=== PATIENT | female | born 1955 | race Native Hawaiian/Other Pacific Islander ===

== ENCOUNTER 2017-04-26 08:04 | Outpatient (CLI) | payer OTHER ==
[2017-04-26 09:02] LABS: PLATELET COUNT 256 K/uL (152-353)
[2017-04-26 09:10] LABS: POTASSIUM 3.9 mmol/L (3.6-5.2); SODIUM 140 mmol/L (136-145)
== END 2017-04-26 19:14 | disposition home or self-care (01) ==
LOC: LABW 08:04
PROVIDERS: Family Medicine
DX: M25.50 Pain in unspecified joint (principal)
CPT/HCPCS: 36415; 80053; 84550; 85027; 85651; 86039; 86140; 86430

== ENCOUNTER 2018-02-08 09:13 | Observation (INO) | payer OTHER ==
[~2018-02-08] VITALS: Ht 149.9 cm; Wt 42.7 kg
[2018-02-08 09:37] LABS: POTASSIUM 4.4 mmol/L (3.6-5.2)
[2018-02-08 14:16] VITALS: BP 140/51; TEMP 98.9; Ht 149.9 cm; Wt 42.7 kg
[2018-02-08] MEDS ORDERED: DILT30TA24 PO (14:30)
[2018-02-08] MEDS ORDERED: CELEXA10 MG PO (14:31)
[2018-02-08] MEDS ORDERED: PEPCID40 MG OR (14:31)
[2018-02-08] MEDS ORDERED: ASPIR-8181 MG PO (14:32)
[2018-02-08] MEDS ORDERED: VITAMIN D-31000 UNI1 PO (14:32)
[2018-02-08 15:23] LABS: PLATELET COUNT 302 K/uL (152-353)
[2018-02-08 15:56] LABS: POTASSIUM 4.3 mmol/L (3.6-5.2)
[2018-02-08 16:00] VITALS: BP 141/76; TEMP 98.6
[2018-02-08 20:00] VITALS: BP 148/65; TEMP 98.5
[2018-02-09] VITALS: BP 151/70; TEMP 98
[2018-02-09 04:00] VITALS: BP 149/74; TEMP 98.2
[2018-02-09 05:03] LABS: PLATELET COUNT 250 K/uL (152-353)
[2018-02-09 05:29] LABS: POTASSIUM 3.9 mmol/L (3.6-5.2)
[2018-02-09 07:58] VITALS: BP 133/61; TEMP 98.4
[2018-02-09 12:00] VITALS: BP 112/55; TEMP 98.3
== END 2018-02-09 16:00 | disposition home or self-care (01) ==
LOC: LABW 09:13 → MED/SURG 13:14
PROVIDERS: Nurse Practitioner Family; ADMIT Family Medicine
DX: K80.80 Other cholelithiasis without obstruction (principal); R74.8 Abnormal levels of other serum enzymes; F41.8 Other specified anxiety disorders; R13.19 Other dysphagia; R63.4 Abnormal weight loss; K21.9 Gastro-esophageal reflux disease without esophagitis
CPT/HCPCS: 36415; 80053; 80074; 81000; 82248; 82550; 82553; 83735; 83874; 84100; 84443; 84484; 85027; 87040; 93005; 99220; G0378; J3490

== ENCOUNTER 2018-02-11 17:37 | Outpatient (CLI) | payer OTHER ==
[~2018-02-11 17:37] MED LIST: ASPIR-8181 MG PO; CELEXA10 MG PO; DILT30TA24 PO; PEPCID40 MG OR; VITAMIN D-31000 UNI1 PO
[2018-02-11 17:57] LABS: PLATELET COUNT 271 K/uL (152-353)
[2018-02-11 18:44] LABS: POTASSIUM 4.4 mmol/L (3.6-5.2)
== END 2018-02-11 22:33 | disposition home or self-care (01) ==
LOC: LAB 17:37
PROVIDERS: Family Medicine
DX: M62.82 Rhabdomyolysis (principal); R94.5 Abnormal results of liver function studies
CPT/HCPCS: 36415; 80053; 82550; 85027

== ENCOUNTER 2018-02-14 10:28 | Day surgery (SDC) | payer OTHER ==
[~2018-02-14] VITALS: Ht 30.5 cm; Wt 0.5 kg
== END 2018-02-14 14:00 | disposition home or self-care (01) ==
LOC: OR 10:28
PROC: 0DB58ZZ Excision of Esophagus, Via Natural or Artificial Opening Endoscopic (ICD-10-PCS; principal; 2018-02-14)
PROC: 0D758ZZ Dilation of Esophagus, Via Natural or Artificial Opening Endoscopic (ICD-10-PCS; 2018-02-14)
DX: K29.50 Unspecified chronic gastritis without bleeding (principal); K22.2 Esophageal obstruction; R13.10 Dysphagia, unspecified; R63.4 Abnormal weight loss; R10.84 Generalized abdominal pain
CPT/HCPCS: 93005; J2001; J2250; J2704

== ENCOUNTER 2018-03-05 10:21 | Outpatient (CLI) | payer OTHER ==
[2018-03-05 11:13] LABS: PLATELET COUNT 277 K/uL (152-353)
[2018-03-05 11:37] LABS: POTASSIUM 4.1 mmol/L (3.6-5.2)
== END 2018-03-05 19:48 | disposition home or self-care (01) ==
LOC: LABW 10:21
PROVIDERS: Family Medicine
DX: R63.4 Abnormal weight loss (principal); R13.19 Other dysphagia; M62.82 Rhabdomyolysis; E04.1 Nontoxic single thyroid nodule
CPT/HCPCS: 36415; 80053; 81000; 82550; 82553; 84443; 84484; 84550; 85027; 85651; 86039; 86430

== ENCOUNTER 2018-03-15 13:45 | Outpatient (CLI) | payer OTHER | END 2018-03-15 19:48 | disposition home or self-care (01) | LOC: INF 13:45 | DX: E86.0 Dehydration (principal) | CPT/HCPCS: 96360; 96361 ==

== ENCOUNTER 2018-04-09 13:11 | Outpatient (CLI) | payer OTHER ==
[2018-04-09 13:44] LABS: PLATELET COUNT 275 K/uL (152-353)
[2018-04-09 14:00] LABS: POTASSIUM 4.4 mmol/L (3.6-5.2)
== END 2018-04-09 23:16 | disposition home or self-care (01) ==
LOC: LABW 13:11
PROVIDERS: Internal Medicine Rheumatology
DX: M33.20 Polymyositis, organ involvement unspecified (principal)
CPT/HCPCS: 36415; 80053; 82550; 85027; 86140

== ENCOUNTER 2018-04-30 09:33 | Outpatient (CLI) | payer OTHER ==
[2018-04-30 10:21] LABS: PLATELET COUNT 281 K/uL (152-353)
[2018-04-30 10:33] LABS: POTASSIUM 4.1 mmol/L (3.6-5.2)
== END 2018-04-30 19:28 | disposition home or self-care (01) ==
LOC: LABW 09:33
PROVIDERS: Internal Medicine Rheumatology
DX: M33.20 Polymyositis, organ involvement unspecified (principal)
CPT/HCPCS: 36415; 80053; 82550; 85027; 86140

== ENCOUNTER 2018-05-31 09:43 | Outpatient (CLI) | payer OTHER | END 2018-05-31 22:46 | disposition home or self-care (01) | LOC: MAMMO 09:43 | DX: Z12.31 Encounter for screening mammogram for malignant neoplasm of breast (principal) ==

== ENCOUNTER 2018-06-03 09:44 | Outpatient (CLI) | payer OTHER ==
[2018-06-03 10:00] LABS: PLATELET COUNT 313 K/uL (152-353)
[2018-06-03 10:28] LABS: POTASSIUM 4.4 mmol/L (3.6-5.2)
== END 2018-06-03 20:39 | disposition home or self-care (01) ==
LOC: LABW 09:44
PROVIDERS: Internal Medicine Rheumatology
DX: M33.20 Polymyositis, organ involvement unspecified (principal); Z79.899 Other long term (current) drug therapy
CPT/HCPCS: 36415; 80048; 82550; 85027; 86140

== ENCOUNTER 2018-06-24 10:00 | Outpatient (CLI) | payer OTHER | END 2018-06-24 19:44 | disposition home or self-care (01) | LOC: RAD 10:00 | DX: N95.1 Menopausal and female climacteric states (principal); Z78.0 Asymptomatic menopausal state ==

== ENCOUNTER 2018-07-04 09:53 | Outpatient (CLI) | payer OTHER ==
[2018-07-04 10:23] LABS: PLATELET COUNT 311 K/uL (152-353)
[2018-07-04 13:33] LABS: POTASSIUM 3.8 mmol/L (3.6-5.2)
== END 2018-07-04 19:35 | disposition home or self-care (01) ==
LOC: LABW 09:53
PROVIDERS: Internal Medicine Rheumatology
DX: M33.20 Polymyositis, organ involvement unspecified (principal); Z79.899 Other long term (current) drug therapy
CPT/HCPCS: 36415; 80048; 82550; 85027; 86140

== ENCOUNTER 2018-08-03 11:07 | Outpatient (CLI) | payer OTHER ==
[2018-08-03 11:50] LABS: PLATELET COUNT 337 K/uL (152-353)
== END 2018-08-03 19:48 | disposition home or self-care (01) ==
LOC: LABW 11:07
PROVIDERS: Internal Medicine Rheumatology
DX: M33.20 Polymyositis, organ involvement unspecified (principal); Z79.899 Other long term (current) drug therapy
CPT/HCPCS: 36415; 80048; 82550; 85027; 86140

== ENCOUNTER 2018-08-15 11:37 | Outpatient (CLI) | payer OTHER | END 2018-08-15 20:14 | disposition home or self-care (01) | LOC: RAD 11:37 | DX: M54.5 Low back pain (principal); M54.6 Pain in thoracic spine ==

== ENCOUNTER 2018-09-24 15:15 | Outpatient (CLI) | payer OTHER | END 2018-09-24 22:42 | disposition home or self-care (01) | LOC: LABW 15:15 | DX: R19.7 Diarrhea, unspecified (principal) | CPT/HCPCS: 83630; 87015; 87045; 87324; 87328; 87329; 87449; 87899 ==

== ENCOUNTER 2018-10-22 12:59 | Outpatient (CLI) | payer OTHER | END 2018-10-22 23:44 | disposition home or self-care (01) | LOC: RESP 12:59 | DX: R06.00 Dyspnea, unspecified (principal) | CPT/HCPCS: 93306 ==

== ENCOUNTER 2019-06-05 10:08 | Outpatient (CLI) | payer OTHER | END 2019-06-05 22:35 | disposition home or self-care (01) | LOC: MAMMO 10:08 | DX: Z12.31 Encounter for screening mammogram for malignant neoplasm of breast (principal) ==

== ENCOUNTER 2019-09-23 10:25 | Outpatient (CLI) | payer OTHER | END 2019-09-23 20:08 | disposition home or self-care (01) | LOC: RAD 10:25 | DX: M79.605 Pain in left leg (principal); M54.12 Radiculopathy, cervical region ==

== ENCOUNTER 2019-10-23 08:53 | Outpatient (CLI) | payer OTHER | END 2019-10-23 20:18 | disposition home or self-care (01) | LOC: MRI 08:53 | DX: M47.812 Spondylosis without myelopathy or radiculopathy, cervical region (principal) ==

== ENCOUNTER 2019-12-09 15:43 | Outpatient (CLI) | payer OTHER ==
[~2019-12-09] VITALS: Ht 149.9 cm; Wt 50.4 kg
== END 2019-12-09 19:37 | disposition home or self-care (01) ==
LOC: INF 15:43
DX: E86.0 Dehydration (principal)
CPT/HCPCS: 96360; 96361

== ENCOUNTER 2020-07-13 09:28 | Outpatient (CLI) | payer OTHER | END 2020-07-14 00:35 | disposition home or self-care (01) | LOC: RAD 09:28 | DX: M54.17 Radiculopathy, lumbosacral region (principal) ==

== ENCOUNTER 2021-05-09 15:49 | Outpatient (CLI) | payer OTHER ==
[2021-05-09 16:10] LABS: SODIUM 140 mmol/L (136-145)
== END 2021-05-09 22:46 | disposition home or self-care (01) ==
LOC: LABW 15:49
PROVIDERS: ATTEND Nurse Practitioner Family
DX: M60.88 Other myositis, other site (principal); R10.13 Epigastric pain
CPT/HCPCS: 36415; 80053; 82150; 82550; 82553; 83690; 84484

== ENCOUNTER 2021-05-10 12:04 | Outpatient (CLI) | payer OTHER | END 2021-05-10 19:21 | disposition home or self-care (01) | LOC: CT 12:04 | PROVIDERS: ATTEND Nurse Practitioner Family | DX: R10.31 Right lower quadrant pain (principal) | CPT/HCPCS: Q9963 ==

== ENCOUNTER 2021-05-11 11:55 | Outpatient (CLI) | payer OTHER ==
[~2021-05-11] VITALS: Ht 149.9 cm; Wt 52.2 kg
== END 2021-05-11 18:55 | disposition home or self-care (01) ==
LOC: INF 11:55
PROVIDERS: ATTEND Family Medicine
DX: E86.0 Dehydration (principal)
CPT/HCPCS: 96360

== ENCOUNTER 2021-08-25 16:03 | Outpatient (CLI) | payer OTHER ==
[2021-08-25 16:30] LABS: PLATELET COUNT 281 K/uL (152-353)
[2021-08-25 16:42] LABS: POTASSIUM 4.7 mmol/L (3.6-5.2)
== END 2021-08-25 19:26 | disposition home or self-care (01) ==
LOC: LABW 16:03
PROVIDERS: ATTEND Nurse Practitioner Family
DX: R19.7 Diarrhea, unspecified (principal)
CPT/HCPCS: 36415; 80053; 82150; 83690; 85027

== ENCOUNTER 2021-09-21 18:01 | Outpatient (CLI) | payer OTHER | END 2021-09-21 20:24 | disposition home or self-care (01) | LOC: CT 18:01 | PROVIDERS: ATTEND Nurse Practitioner Family | DX: S06.0X0A Concussion without loss of consciousness, initial encounter (principal); M54.2 Cervicalgia; Y92.9 Unspecified place or not applicable ==

== ENCOUNTER 2021-12-16 14:33 | Outpatient (CLI) | payer OTHER | END 2021-12-16 21:49 | disposition home or self-care (01) | LOC: MAMMO 14:33 → MRI 15:00 → MAMMO 21:49 | PROVIDERS: ATTEND Nurse Practitioner Family | DX: Z12.31 Encounter for screening mammogram for malignant neoplasm of breast (principal); S06.0X0A Concussion without loss of consciousness, initial encounter; Y92.9 Unspecified place or not applicable ==

== ENCOUNTER 2022-01-09 12:19 | Outpatient (CLI) | payer OTHER | END 2022-01-09 19:11 | disposition home or self-care (01) | LOC: RAD 12:19 | PROVIDERS: ATTEND Nurse Practitioner Family | DX: R10.2 Pelvic and perineal pain (principal) ==

== ENCOUNTER 2022-01-30 10:44 | Outpatient (CLI) | payer OTHER | END 2022-01-30 20:48 | disposition home or self-care (01) | LOC: RAD 10:44 | PROVIDERS: ATTEND Internal Medicine Pulmonary Disease | DX: R06.00 Dyspnea, unspecified (principal) ==

== ENCOUNTER 2022-08-24 09:32 | Outpatient (CLI) | payer OTHER | END 2022-08-24 18:56 | disposition home or self-care (01) | LOC: RESP 09:32 | PROVIDERS: ATTEND Internal Medicine Pulmonary Disease | DX: J45.40 Moderate persistent asthma, uncomplicated (principal) ==

== ENCOUNTER 2023-01-08 10:48 | Outpatient (CLI) | payer OTHER ==
[2023-01-08 11:04] LABS: PLATELET COUNT 271 K/uL (152-353)
== END 2023-01-08 20:17 | disposition home or self-care (01) ==
LOC: LABW 10:48
PROVIDERS: ATTEND Nurse Practitioner Gerontology
DX: M33.22 Polymyositis with myopathy (principal); Z79.899 Other long term (current) drug therapy
CPT/HCPCS: 36415; 80053; 82550; 85027; 85652; 86140

== ENCOUNTER 2023-01-29 10:25 | Outpatient (CLI) | payer OTHER | END 2023-01-29 18:58 | disposition home or self-care (01) | LOC: RAD 10:25 | PROVIDERS: ATTEND Nurse Practitioner Gerontology | DX: M06.4 Inflammatory polyarthropathy (principal); M54.2 Cervicalgia ==

== ENCOUNTER 2023-02-12 09:00 | Outpatient (CLI) | payer OTHER | END 2023-02-12 18:59 | disposition home or self-care (01) | LOC: MAMMO 09:00 | PROVIDERS: ATTEND Internal Medicine Pulmonary Disease | DX: J45.40 Moderate persistent asthma, uncomplicated (principal); Z12.31 Encounter for screening mammogram for malignant neoplasm of breast ==